=== PATIENT | female | born 1970 | race Caucasian/White ===

== ENCOUNTER 2021-01-25 19:59 | Emergency (ER) | payer BC ==
[~2021-01-25] VITALS: Ht 152.4 cm; Wt 44.0 kg
--- NOTE | 2021-01-25 20:25 | PHYS DOC ---
General Adult EDM: Chief Complaint: BACK PAIN OR INJURY HPI: HPI: Patient is a [age] year old [sex] who presents with [] Review of Systems: Review of Systems: Constitutional: Denies fever or chills Eyes: Denies redness or eye pain HENT: Denies nasal congestion or sore throat Respiratory: Denies cough or shortness of breath Cardiovascular: Denies chest pain or palpitations GI: Denies abdominal pain, nausea, or vomiting : Denies dysuria or hematuria Musculoskeletal: Denies back pain or joint pain Integument: Denies rash or skin lesions Neurologic: Denies headache, focal weakness or sensory changes Complete systems were reviewed and found to be within normal limits, except as documented in this note. Physical Exam: PE: Constitutional: Well developed, well nourished, no acute distress, non-toxic appearance HENT: Normocephalic, atraumatic Eyes: PERRL, EOMI, conjunctiva normal, no discharge Neck: Normal range of motion, no tenderness, supple Lungs & Thorax: No respiratory distress, equal chest rise and fall Abdomen: Soft, no tenderness Skin: Warm, dry, no erythema, no rash Back: No tenderness, no CVA tenderness Extremities: No tenderness, ROM intact, no edema Neurologic: Alert and oriented X 3, normal motor function, normal sensory function, no focal deficits noted Psychologic: Affect normal, judgment normal EKG: EKG: [] Radiology/Procedures: Radiology/Procedures: [] Heart Score: C/O Chest Pain: N/A Course & Med Decision Making: Course & Med Decision Making Pertinent Labs and Imaging studies reviewed. (See chart for details) [] Jennifer Disclaimer: Jennifer Disclaimer: This electronic medical record was generated, in whole or in part, using a voice recognition dictation system. Departure Departure: Impression: Primary Impression: Acute thoracic back pain Qualified Codes: M54.6 - Pain in thoracic spine Disposition: HOME / SELF CARE / HOMELESS Condition: STABLE Referrals: JOSÉ MIGUEL AVILES MD (PCP) Patient Instructions: Back Pain, Adult, [id number] Additional Instructions: ICE area of discomfort 20 min on then leave off next 20 mins. Repeat several times daily as needed. Use over the counter Ibuprofen and/or Naproxen in addition to previously prescribed pain medications and Valium for muscle pain. Call and make an appointment to follow with pain management: Dr. Mk Curtis [address] [facility], [address] [place] [address] Scripts Hydrocodone Bit/Acetaminophen (HYDROCODONE-APAP 5-325 ) 1 Each Tablet 0.5-1 TAB PO PRN Q6HRS PRN for PAIN, #10 TAB 0 Refills Prov: DAVID HECTOR DO 01/25/21 DAVID HECTOR DO Jan 25, 2021 20:25
[2021-01-25] MEDS ORDERED: HYDR-2155 PO ×2 (20:43→20:56)
[2021-01-25] MEDS: KETOROLAC 30 MG/ML VIAL. IM ONE (21:02)
[2021-01-25] MEDS: DEXAMETHASONE 4 MG TABLET PO ONE (21:03)
[2021-01-25 21:05] VITALS: BP 109/66
== END 2021-01-25 21:08 | disposition home or self-care (01) ==
LOC: ER 19:59
DX: M54.6 Pain in thoracic spine (principal)
CPT/HCPCS: 96372; 99283; J1885; J8540

== ENCOUNTER 2021-04-23 13:52 | Emergency (ER) | payer BC ==
[~2021-04-23] VITALS: Ht 152.4 cm; Wt 45.9 kg
[2021-04-23 13:52] VITALS: BP 128/72
[~2021-04-23 13:52] MED LIST: HYDR-2155 PO
--- NOTE | 2021-04-23 15:28 | PHYS DOC ---
Past History Past Medical History: Arthritis, Asthma, Migraines Additional Past Medical Histor: Chronic neck pain, SMA syndrome Past Surgical History: Cholecystectomy, Hysterectomy Additional Past Surgical Histo: SMA repaired, cervical spine, lumbar spine Alcohol Use: None Drug Use: None Adult General Chief Complaint Chief Complaint: COUGH HPI HPI Patient is a 50-year-old female presenting for URI symptoms. Reports this started approximately 48 hours ago. States she has known sick contact, she has had extremely close contact with a friend whose daughter is a known Covid positive individual. Patient spent significant amount of time with Covid positive individuals mother he was also asymptomatic but never got tested. Patient reports she got worried and she had subjective fever, nasal congestion, anterior and posterior nasal drainage, and a dry nonproductive cough that has not been responsive to ibuprofen, Tylenol and Sudafed use prompting her to come in for evaluation. She is scheduled to work [employer] but concerned that she might have COVID-19. She has numerous other medical conditions that been at baseline. She does admit she has history of asthma for which she has been using inhalers but states current episode does not involve lungs, there is no wheezing and does not feel typical for prior exacerbations. She does admit to ongoing tobacco abuse which she said has not been helping her symptoms, no alcohol or dr ug use. She does admit she is fully vaccinated against COVID-19 Review of Systems Review of Systems Fourteen body systems of review of systems have been reviewed. See HPI for pertinent positives and negative responses, other ashby all other systems are negative, non-pertinent or non-contributory Allergies Allergies Allergies Coded Allergies Type Severity Reaction Last Updated Verified No Known Drug Allergies 01/25/21 No Physical Exam Physical Exam Constitutional: Well developed, well nourished, no acute distress, non-toxic appearance. HENT: Normocephalic, atraumatic, bilateral external ears normal, oropharynx moist, no oral exudates, patient has anterior rhinorrhea and postnasal drip present Eyes: PERRLA, EOMI, conjunctiva normal, no discharge. Neck: Normal range of motion, no tenderness, supple, no stridor. Cardiovascular: Heart rate regular, sinus rhythm, no murmurs rubs or gallops Lungs & Thorax: Bilateral breath sounds clear to auscultation Abdomen: Bowel sounds normal, soft, no tenderness, no masses, no pulsatile masses. Nonsurgical abdomen, no peritoneal signs Skin: Warm, dry, no erythema, no rash. Back: No tenderness, no CVA tenderness. Extremities: No tenderness, no cyanosis, no clubbing, ROM intact, no edema. Neurologic: Alert and oriented X 3, grossly normal motor & sensory function, no focal deficits noted. Psychologic: Affect normal, judgement normal, mood normal. Current Patient Data Vital Signs Vital Signs Date Time Temp Pulse Resp B/P (MAP) Pulse Ox O2 Delivery O2 Flow Rate FiO2 04/23/21 13:52 98.4 95 20 128/72 (90) 99 Room Air Vital Signs Date Time Temp Pulse Resp B/P (MAP) Pulse Ox O2 Delivery O2 Flow Rate FiO2 04/23/21 13:52 98.4 95 20 128/72 (90) 99 Room Air EKG EKG [] Radiology/Procedures Radiology/Procedures [] Heart Score C/O Chest Pain: No Risk Factors: Risk Factors: DM, Current or recent (<one month) smoker, HTN, HLP, family history of CAD, obesity. Risk Scores: Risk Factors: DM, Current or recent (<one month) smoker, HTN, HLP, family history of CAD, obesity. Course & Med Decision Making Course & Med Decision Making ABCs unremarkable HPI and physical exam consistent with URI symptoms in a patient with known COVID-19 exposure, joint decision made to test with PCR test pending I disclose given patient's risk factor of tobacco abuse that I could not fully exclude COPD exacerbation, patient has had this in the past but denies any issues with her chest and deferring chest x-ray and other potential work-up As such, self quarantine and supportive care instructions were educated at length with strict return precautions that were understood by patient prior to ER departure with supportive care practices advised Jennifer Disclaimer Jennifer Disclaimer This electronic medical record was generated, in whole or in part, using a voice recognition dictation system. Departure Departure: Impression: Primary Impression: Viral syndrome Additional Impressions: Person under investigation for COVID-19 Tobacco abuse Disposition: HOME / SELF CARE / HOMELESS Condition: STABLE Referrals: PCP,NO (PCP) Additional Instructions: You were seen for headache, fever, cough, body aches, and possible infection with COVID-19. Your physical exam was reassuring. We tested you for COVID-19 but this test does not come back for 1 to 2 days. In the meantime you need to quarantine yourself at home away from all other individuals, especially those who are elderly or have any other chronic health issues or an immunocompromised status. You should return to the ED if you develop worsening cough, shortness of breath, chest pain, or any other new or concerning symptoms. Alternate Tylenol and ibuprofen as needed for body aches and pain. In addition, you should utilize a daily antihistamine with an intranasal corticosteroid spray. If your test does come back positive you need to quarantine yourself for 10 days until symptom-free. You should make sure to drink plenty of fluids and get plenty of rest. Problem Qualifiers VINOD CASAS DO Apr 23, 2021 15:28
== END 2021-04-23 16:15 | disposition home or self-care (01) ==
LOC: ER 13:52
DX: B34.9 Viral infection, unspecified (principal); M19.90 Unspecified osteoarthritis, unspecified site; J45.909 Unspecified asthma, uncomplicated; G43.909 Migraine, unspecified, not intractable, without status migrainosus; G89.29 Other chronic pain; Z20.822 Contact with and (suspected) exposure to COVID-19; Z72.0 Tobacco use
CPT/HCPCS: 99283; C9803; U0003